=== PATIENT | male | born 1945 | race Caucasian/White ===

== ENCOUNTER 2018-05-30 10:25 | Emergency (ER) | payer MEDICARE, BC ==
--- NOTE | 2018-05-30 12:23 | UC ---
Syncope/New Syncope HPI - HPI Summary HPI Summary: 72 year old male with history of advanced Parkinson's presents with reporting episodes which the describes as the patient "going blank", becoming weak, and needing to be physically assisted into a chair. She states he has had similar episodes in the past but have occurred more frequently this week with patient having 1 episode on 05/27/2018 and 2 episodes on 05/28/2018. reports past episodes were associated with changes in position however at least one of his episodes this week occurred while he was ambulating across a parking lot. She states these episodes typically last around 5-10 minutes. Patient is nonverbal during the episodes. He states he is aware of the episodes when they occur. states that patient is presently acting at baseline. Denies fever, chills, headache, visual disturbances, speech difficulties, numbness or tingling of the extremities, chest pain, palpitations, shortness of breath, diaphoresis, or generalized seizure-like activity. He has a deep brain stimulator. Battery was changed 03/2018. He is followed by Dr. Marley, neurology, at [facility]. - History Of Current Complaint Chief Complaint: UCGeneralIllness Stated Complaint: BP PROBLEMS Time Seen by Provider: 05/30/18 10:58 Hx Obtained From: Patient, Family/House Painter Helper Hx From Patient Unobtainable Due To: Other - Mild-moderate cognitive impairment Onset/Duration: Sudden Onset Timing: Frequency Of Episodes - Intermittent episodes lasting 5-10 mintues. See HPI. Frequency: Episodes x___ - 3 this week Context: Witnessed Associated Head Trauma: No Pain Intensity: 0 Aggravating Factor(s): Position Change, Exertion Alleviating Factor(s): Rest Associated Signs And Symptoms: Positive: Decreased Oral Intake, Weakness. Negative: Chest Pain, Diarrhea, Diaphoresis, Dizzy, Headache, Numbness, Palpitations, Shortness Of Breath - Allergies/Home Medications Allergies/Adverse Reactions: Allergies Allergy/AdvReac Type Severity Reaction Status Date / Time No Known Allergies Allergy Verified 05/30/18 10:44 Home Medications: Home Medications Cholecalciferol TAB* [Vitamin D TAB*] 1,000 unit PO DAILY 05/30/18 [History Confirmed 05/30/18] DOXYcycline CAP(*) [DOXYcycline 100MG CAP(*)] 50 mg PO BID 05/30/18 [History Confirmed 05/30/18] PARoxetine HCL TAB* [Paxil TAB*] 10 mg PO DAILY 05/30/18 [History Confirmed 09/15] QUEtiapine TAB* [Seroquel 25 MG TAB*] 25 mg PO BEDTIME 05/30/18 [History Confirmed 05/30/18] PMH/Surg Hx/FS Hx/Imm Hx Other Neurological History: Parkinson's Psychological History: Depression - Surgical History Surgical History: Yes Surgery Procedure, Year, and Place: DBS- electrodes in brain, batteries in chest - Social History Occupation: Retired Lives: With Family Alcohol Use: Weekly Substance Use Type: None Smoking Status (MU): Never Smoked Tobacco Review of Systems Constitutional: Negative Skin: Negative Eyes: Negative Respiratory: Negative Cardiovascular: Negative Gastrointestinal: Negative Neurological: Other - See HPI Is Patient Immunocompromised?: No All Other Systems Reviewed And Are Negative: Yes Physical Exam Triage Information Reviewed: Yes Appearance: No Pain Distress, Well-Nourished, Ill-Appearing - Chronically Vital Signs: Initial Vital Signs Temp 98.1 F 05/30/18 10:35 Pulse 62 05/30/18 10:35 Resp 16 05/30/18 10:35 BP 100/67 05/30/18 10:35 Pulse Ox 99 05/30/18 10:35 Respiratory: Positive: Lungs clear, Normal breath sounds, No respiratory distress Cardiovascular: Positive: RRR, No Murmur, Pulses Normal, Brisk Capillary Refill Abdomen Description: Positive: Nontender, No Organomegaly, Soft. Negative: Distended, Guarding Bowel Sounds: Positive: Present Neurological: Positive: Other: - Awake, alert, and oriented x 4. Speech soft but appropriate. Shuffling gait. GOLDSMITH well but with slow, deliberate intent. Sensation intact. Balance and coordination deferred. Psychological: Positive: Normal Response To Family Skin Exam: Normal Syncope Course/Dx - Course Course Of Treatment: 72 year old male with advanced Parkinson's presents with reporting frequent near syncopal episodes. She was directed to come to by his neurologist's RN to have orthostatic VS performed. Exam is unremarkable at this time and patient appears to be at his baseline. Orthostatic VS were performed and there was a significant drop in his blood pressure without corresponding increase in pulse however patient was assymptomatic. It was recommended at that time that the patient be evaluated futher in the ED as I cannot correlate this finding with his reported symptoms. Spoke with MIGUELITO Payne in the ED who requested that case be discussed with his neurologist, Dr. Marley. Call was placed to Dr. Marley. Spoke with his RN, Charlotte, at 13:33 and again at 13:[address] Marley concurs with recommendation to have patient evaluated in the ED. Patient and elect to transfer via private vehicle. - Differential Dx/Diagnosis Differential Diagnosis/HQI/PQRI: Dysrhythmia, Seizure, Transient Ischemic Attack , Other - orthostatic hypotension Provider Diagnoses: Near syncope Discharge - Sign-Out/Discharge Documenting (check all that apply): Patient Departure All imaging exams completed and their final reports reviewed: No Studies - Discharge Plan Condition: Stable Disposition: HOME-RECOMMEND TO ED Patient Education Materials: Near Syncope (ED) Referrals: No Primary Care Phys,NOPCP [Primary Care Provider] - Additional Instructions: You did have a drop in your blood pressure with changes in position but you did not have any symptoms with these changes therefore I cannot definitively say that this is the cause of your symptoms. I spoke with Dr. Marley's nurse regarding the findings and they agree with my recommending that you be evaluated further in the emergency room at this time. Go directly to the emergency room for evaluation. - Billing Disposition and Condition Condition: STABLE Disposition: Home-Recommend to ED
[2018-05-30 12:53] VITALS: BP 121/75
== END 2018-05-30 14:16 | disposition home health service (06) ==
LOC: UCEAST 10:25
DX: R55 Syncope and collapse (principal); G20 Parkinson's disease; F32.9 Major depressive disorder, single episode, unspecified; Z96.9 Presence of functional implant, unspecified
CPT/HCPCS: 99212; G0463

== ENCOUNTER → 2018-05-30 14:35 | Emergency (ER) | payer MEDICARE, BC ==
[~2018-05-30 14:35] MED LIST: NS 0.9% 1000 ML* 1,000 ML IV ONE
--- NOTE | 2018-05-30 16:31 | ED ---
HPI Cardiac - HPI Summary HPI Summary: Patient is a 72 y/o M presenting to ED from for positive orthostatics. He was seen at for increased weakness, "going blank" and three syncopal episodes , one 05/27 and two 05/28, this week. At , BP standing at 1155 was 160/80, sitting was 117/71 at 1157, at 1200 BP was 93/62. Patient's reports that patient has had Parkinson's for twenty years. Patient takes paroxetine, doxycycline, and nuplazid. Patient has a deep brain stimulator, battery changed 03/2018. On triage, pain is denied, nothing is noted to aggravate/alleviate Sx. Home medications and allergies are reviewed. - History of Current Complaint Chief Complaint: EDHypertension Stated Complaint: BLOOD PRESSURE Time Seen by Provider: 05/30/18 16:22 Hx Obtained From: Patient Onset/Duration: Started Days Ago - syncopal episodes, Started Weeks Ago - weakness, "going blank" Timing: Constant Current Severity: None - pain denied Pain Intensity: 0 Pain Scale Used: 0-10 Numeric - 0/10 Aggravating Factor(s): Nothing Alleviating Factor(s): Nothing Associated Signs and Symptoms: Positive: Syncope, Other: - positive orthostatics , fatigue, "going blank" - Allergy/Home Medications Allergies/Adverse Reactions: Allergies Allergy/AdvReac Type Severity Reaction Status Date / Time No Known Allergies Allergy Verified 05/30/18 10:44 Home Medications: Home Medications Carbidopa/Levodop 25/100 MG(*) [Sinemet 25/100 TAB(*)] 0.5 tab PO TID 05/30/18 [ History Confirmed 05/30/18] Carbidopa/Levodop CR 50/200(*) [Sinemet CR 50/200(*)] 2 tab.cr PO BEDTIME [History Confirmed 05/30/18] Doxycycline (NF) 20 mg PO BID 05/30/18 [History Confirmed 05/30/18] PARoxetine HCL TAB* [Paxil TAB*] 30 mg PO DAILY 05/30/18 [History Confirmed 09/15] Pimavanserin Tartrate [Nuplazid] 34 mg PO DAILY 05/30/18 [History Confirmed 09/15] Rivastigmine [Exelon] 13.3 mg TOPICAL DAILY 05/30/18 [History Confirmed 05/30/18 ] PMH/Surg Hx/FS Hx/Imm Hx Sensory History: Denies: Hx Legally Blind, Hx Deafness Opthamlomology History: Denies: Hx Legally Blind EENT History: Denies: Hx Deafness - Surgical History Surgery Procedure, Year, and Place: DBS- electrodes in brain, batteries in chest Infectious Disease History: No Infectious Disease History: Denies: Hx Clostridium Difficile, Hx Hepatitis, Hx Human Immunodeficiency Virus (HIV), Hx of Known/Suspected MRSA, Hx Shingles, Hx Tuberculosis, Traveled Outside the [place] in Last 30 Days - Family History Known Family History: Negative: Blood Disorder - Social History Alcohol Use: Weekly Substance Use Type: Reports: None Smoking Status (MU): Never Smoked Tobacco Review of Systems Positive: Fatigue Positive: Other - positive orthostatics Neurological: Other - "going blank" Positive: Syncope All Other Systems Reviewed And Are Negative: Yes Physical Exam - Summary Physical Exam Summary: Appearance: Well appearing, no pain distress Skin: warm, dry, reflects adequate perfusion Head/face: normal Eyes: EOMI, NKECHI ENT: mucous membranes moist Neck: supple, non-tender Respiratory: CTA, breath sounds present Cardiovascular: RRR, pulses symmetrical Abdomen: non-tender, soft Bowel Sounds: present Musculoskeletal: normal, strength/ROM intact, no edema bilaterally at LE, no tremors Neuro: normal, sensory motor intact, A&Ox3 Psych: flat affect Triage Information Reviewed: Yes Vital Signs On Initial Exam: Initial Vitals Temp Pulse Resp BP Pulse Ox 97.3 F 63 16 107/70 99 05/30/18 14:38 05/30/18 14:38 05/30/18 14:38 05/30/18 14:38 05/30/18 14:38 Vital Signs Reviewed: Yes Diagnostics - Vital Signs Vital Signs Temp Pulse Resp BP Pulse Ox 05/30/18 16:16 56 176/90 98 05/30/18 16:05 55 99 05/30/18 16:04 57 180/92 99 05/30/18 14:38 97.3 F 63 16 107/70 99 - Laboratory Result Diagrams: 05/30/18 16:54 05/30/18 16:54 Lab Statement: Any lab studies that have been ordered have been reviewed, and results considered in the medical decision making process. - EKG 1645 Cardiac Rate: NL - rate of 66 BPM EKG Rhythm: Sinus Rhythm ST Segment: Normal Summary of EKG Findings: normal axis, baseline artifact Re-Evaluation - Re-Evaluation First Eval Re-Evaluation Time: 18:30 Comment: Discussed results of labs and tests with patient, he will be discharged to home and is advised to follow up with PCP. Patient is agreeable with this. Disposition - Course Course Of Treatment: Patient presents for orthostasis and hypertension patient with significant parkinsonism. 2 L of IV fluid here resolved the orthostasis. He will need rate blood pressure recheck by primary care physician. He was up and walking and stable without lightheadedness. - Differential Dx - Cardiopulmonary Differential Diagnoses - Cardiopulmonary: Other - Parkinsonism, dehydration, acute renal failure, gastroenteritis, autonomic instability - Diagnoses Provider Diagnoses: Orthostasis, Parkinson disease Discharge - Sign-Out/Discharge Documenting (check all that apply): Patient Departure - discharge - Discharge Plan Condition: Improved Disposition: HOME Patient Education Materials: Dehydration (ED) Referrals: No Primary Care Phys,NOPCP [Primary Care Provider] - Additional Instructions: Drink plenty of fluids. Call your doctor (Dr. Fritz Marley) first thing Saturday morning to schedule prompt follow-up. Return to the ER if you are feeling lightheaded, weak or dizzy or have other concerns. - Billing Disposition and Condition Condition: IMPROVED Disposition: Home - Attestation Statements Document Initiated by Claude: Yes Documenting Scribe: Sagar Mcdonald Provider For Whom Claude is Documenting (Include Credential): Francisco Lomeli MD Scribe Attestation: I, Sagar Mcdonald , scribed for Francisco Lomeli MD on 05/31/18 at 0740. Scribe Documentation Reviewed: Yes Provider Attestation: The documentation as recorded by the Sagar rios accurately reflects the service I personally performed and the decisions made by me, Francisco Lomeli MD
[2018-05-30 17:01] LABS: ABS Basophils 0 10^3/ul (0-0.2); ABS Eosinophils 0 10^3/ul (0-0.6); ABS Lymphocytes 1.5 10^3/ul (1.0-4.8); ABS Monocytes 0.5 10^3/ul (0-0.8); ABS Neutrophils 4.6 10^3/ul (1.5-7.7); ABS Nucleated RBC 0 10^3/ul; Eosinophil % 0.6 % (0-6); Hematocrit 42 % (42-52); Hemoglobin 14.2 g/dl (14.0-18.0); Lymphocyte % 22.4 % (25-47); Mean Corpuscular HGB Conc 34 g/dl (31-36); Mean Corpuscular Hemoglobin 30 pg (27-31); Mean Corpuscular Volume 88 fL (80-94); Mean Platelet Volume 9.2 fL (7.4-10.4); Nucleated Red Blood Cells % 0.2; Platelet Count 113 10^3/ul (150-450); Red Blood Count 4.76 10^6/ul (4.00-5.40); Red Cell Distribution Width 14 % (10.5-15); White Blood Count 6.6 10^3/ul (3.5-10.8)
[2018-05-30 17:22] LABS: EGFR Non-African American 85.1 (>60)
[2018-05-30 19:00] VITALS: BP 117/70
== END | disposition home or self-care (01) ==
LOC: ED 14:35
DX: I95.1 Orthostatic hypotension (principal); I10 Essential (primary) hypertension; G20 Parkinson's disease; R55 Syncope and collapse; F32.9 Major depressive disorder, single episode, unspecified; Z96.9 Presence of functional implant, unspecified
CPT/HCPCS: 36415; 80048; 85025; 93005; 96365; 96367; 99212; 99283; 99284; G0463

== ENCOUNTER 2019-02-15 11:16 | Emergency (ER) | payer MEDICARE, BC ==
[2019-02-15] MEDS ORDERED: NS 0.9% 1000 ML** 1,000 ML IV ONE ×2 (11:41→13:30)
--- NOTE | 2019-02-15 11:42 | ED ---
Syncope/Near Syncope - HPI Summary HPI Summary: Pt. is a 73 y.o male who presents to the ER for evaluation of low blood pressure. Pt. has a hx of Parkinson's, HTN, orthostatic hypotension. Pt. resides at home with a caregiver. Caregiver present in ER. Caregiver states just prior to arrival pt. went from a seated position to standing and his BP dropped and had seizure activity that lasted about 30 seconds. Caregiver states it is common for pt. to have a seizure when his BP drops. Caregiver lowered pt. to the ground and there was no head injury. Pt. is not on seizure prophylaxis. No recent illness, CP, SOB, cough, abd. pain, V/D, urinary sxs. Sxs are moderate in severity. No current modifying factors. - History Of Current Complaint Time Seen by Provider: 02/15/19 11:29 Hx Obtained From: Family/Transfer Coordinator - Allergies/Home Medications Allergies/Adverse Reactions: Allergies Allergy/AdvReac Type Severity Reaction Status Date / Time No Known Allergies Allergy Verified 05/30/18 10:44 PMH/Surg Hx/FS Hx/Imm Hx Previously Healthy: Yes Sensory History: Denies: Hx Legally Blind, Hx Deafness Opthamlomology History: Denies: Hx Legally Blind - Surgical History Surgery Procedure, Year, and Place: DBS- electrodes in brain, batteries in chest Infectious Disease History: Denies: Hx Clostridium Difficile, Hx Hepatitis, Hx Human Immunodeficiency Virus (HIV), Hx of Known/Suspected MRSA, Hx Shingles, Hx Tuberculosis, Traveled Outside the [place] in Last 30 Days - Family History Known Family History: Positive: Non-Contributory Negative: Blood Disorder - Social History Occupation: Retired Lives: With Family Alcohol Use: Weekly Substance Use Type: Reports: None Smoking Status (MU): Never Smoked Tobacco Review of Systems Constitutional: Negative Negative: Fever, Chills Eyes: Negative ENT: Negative Cardiovascular: Negative Negative: Chest Pain Respiratory: Negative Negative: Shortness Of Breath, Cough Gastrointestinal: Negative Negative: Abdominal Pain, Vomiting, Diarrhea Genitourinary: Negative Negative: dysuria Musculoskeletal: Negative Skin: Negative Positive: Syncope All Other Systems Reviewed And Are Negative: Yes Physical Exam Triage Information Reviewed: Yes Vital Signs Reviewed: Yes Appearance: Positive: Well-Appearing - Pt. sitting up in bed with eyes closed. Will answer questions very softly. Skin: Positive: Warm, Dry Head/Face: Positive: Normal Head/Face Inspection Eyes: Positive: Normal, EOMI Neck: Positive: Supple Respiratory/Lung Sounds: Positive: Clear to Auscultation, Breath Sounds Present Cardiovascular: Positive: Normal, RRR Abdomen Description: Positive: Nontender, Soft Musculoskeletal: Negative: Edema Left, Edema Right Neurological: Positive: Normal, CN Intact II-III Psychiatric: Positive: Affect/Mood Appropriate Diagnostics - Laboratory Result Diagrams: 02/15/19 12:14 02/15/19 12:14 Lab Statement: Any lab studies that have been ordered have been reviewed, and results considered in the medical decision making process. Course/Dx Course Of Treatment: Pt. presenting after what sounds to be a syncopal episode from hypotension. Pt. is afebrile. He appears tired but nontoxic. ECG done at 1214 shows a sinus rhythm of 54bpm, normal axis, no st elevation. Labs are unremarkable other than low TSH. Free T4 and T3 ordered and are normal. After 2 L of NSS pt. is sitting up in bed talking and interactive. 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 Advised close fu with PCP. Change positions slowly. Will return to ER if sxs change or worsen. - Diagnoses Differential Diagnosis/HQI/PQRI: Positive: Dysrhythmia, Hypoglycemia, Hypovolemia, Seizure, Vasovagal Episode Provider Diagnoses: Hypotension Discharge - Sign-Out/Discharge Documenting (check all that apply): Patient Departure Patient Received Moderate/Deep Sedation with Procedure: No - Discharge Plan Condition: Improved Disposition: HOME Patient Education Materials: Hypotension (ED) Referrals: [facility] [Outside] Additional Instructions: Schedule a follow up appointment with PCP in 2-3 days for recheck Increase fluids Change positions slowly Return to ER if symptoms change or worsen - Billing Disposition and Condition Condition: IMPROVED Disposition: Home
[2019-02-15 12:21] LABS: ABS Lymphocytes 1.4 10^3/ul (1.0-4.8); ABS Monocytes 0.5 10^3/ul (0-0.8); ABS Neutrophils 8.3 10^3/ul (1.5-7.7); Eosinophil % 0.4 %; Hematocrit 45 % (42-52); Hemoglobin 15.5 g/dL (14.0-18.0); Lymphocyte % 13.5 %; Mean Corpuscular HGB Conc 34 g/dL (31-36); Mean Corpuscular Hemoglobin 30 pg (27-31); Mean Corpuscular Volume 88 fL (80-94); Mean Platelet Volume 9.1 fL (7.4-10.4); Platelet Count 148 10^3/uL (150-450); Red Blood Count 5.12 10^6 /uL (4.18-5.48); Red Cell Distribution Width 14 % (10-15); White Blood Count 10.2 10^3/uL (3.5-10.8)
[2019-02-15 12:37] LABS: ALT < 3 U/L (7-52); AST 11 U/L (13-39); Albumin/Globulin Ratio 1.5 (1-3); Alkaline Phosphatase 91 U/L (34-104); Anion Gap 5 mmol/L (2-11); BUN/Creatinine Ratio 15.2 (8-20); Blood Urea Nitrogen 14 mg/dL (6-24); CO2 Carbon Dioxide 29 mmol/L (22-32); Calcium 8.9 mg/dL (8.6-10.3); Chloride 105 mmol/L (101-111); EGFR African American 97.6 (>60); EGFR Non-African American 80.6 (>60); Globulin 2.7 g/dL (2-4); Glucose 107 mg/dL (70-100); Magnesium 2.3 mg/dL (1.9-2.7); Potassium 4.4 mmol/L (3.5-5.0); Sodium 139 mmol/L (135-145); Total Protein 6.7 g/dL (6.4-8.9)
[2019-02-15 13:36] LABS: TSH (Thyroid Stimulating Horm) 0.01 mcIU/mL (0.34-5.60)
[2019-02-15 14:36] LABS: Free T4 0.84 ng/dL (0.61-1.12)
[2019-02-15 15:11] VITALS: BP 96/73
== END 2019-02-15 15:08 | disposition home or self-care (01) ==
LOC: ED 11:16
DX: I95.9 Hypotension, unspecified (principal); G20 Parkinson's disease; I10 Essential (primary) hypertension; I95.1 Orthostatic hypotension
CPT/HCPCS: 36415; 71045; 80053; 83605; 83735; 84439; 84443; 84479; 84481; 84484; 85025; 93005; 96360; 96361; 99283

== ENCOUNTER 2019-02-16 09:21 | Inpatient (IN) | payer MEDICARE, BC ==
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
[2019-02-16 09:54] LABS: ABS Eosinophils 0.1 10^3/ul (0-0.6); ABS Lymphocytes 1.4 10^3/ul (1.0-4.8); ABS Monocytes 0.5 10^3/ul (0-0.8); Eosinophil % 1.1 %; Hematocrit 42 % (42-52); Hemoglobin 14.7 g/dL (14.0-18.0); Lymphocyte % 20.5 %; Mean Corpuscular HGB Conc 35 g/dL (31-36); Mean Corpuscular Hemoglobin 31 pg (27-31); Mean Corpuscular Volume 88 fL (80-94); Mean Platelet Volume 8.9 fL (7.4-10.4); Nucleated Red Blood Cells % 0.2; Platelet Count 130 10^3/uL (150-450); Red Blood Count 4.79 10^6 /uL (4.18-5.48); Red Cell Distribution Width 14 % (10-15)
[2019-02-16 10:12] LABS: Albumin 3.9 g/dL (3.2-5.2); Albumin/Globulin Ratio 1.6 (1-3); BUN/Creatinine Ratio 15.1 (8-20); Calcium 8.7 mg/dL (8.6-10.3); EGFR African American 105.5 (>60); EGFR Non-African American 87.2 (>60); Globulin 2.5 g/dL (2-4); Magnesium 2.2 mg/dL (1.9-2.7); Potassium 4.2 mmol/L (3.5-5.0); Total Bilirubin 0.8 mg/dL (0.2-1.0); Total Protein 6.4 g/dL (6.4-8.9)
[2019-02-16 10:22] LABS: Urine Appearance Clear; Urine Bilirubin Negative (Negative); Urine Blood Negative (Negative); Urine Color Straw; Urine Glucose Negative (Negative); Urine Ketones Negative (Negative); Urine Nitrite Negative (Negative); Urine Protein Negative (Negative); Urine Specific Gravity 1.008 (1.010-1.030); Urine Urobilinogen Negative (Negative)
[2019-02-16] MEDS ORDERED: Carbidopa/Levodop 25/100 MG TAB(*) PO ONE ×2 (10:49→15:45)
[2019-02-16] MEDS ORDERED: QUEtiapine TAB* 25 MG PO PRN (17:08)
[2019-02-16] MEDS: Carbidopa/Levodop 25/100 MG TAB(*) PO SCH (19:53)
[2019-02-16] MEDS ORDERED: RIVASTIGMINE 13.3 MG TOPICAL SCH (21:00)
[2019-02-16] MEDS: QUEtiapine TAB* 25 MG PO SCH (21:01)
[2019-02-16] MEDS: Carbidopa/Levodop CR 50/200(*) TAB.CR PO SCH (21:01)
[2019-02-16] MEDS: Heparin VIAL(*) 5000 UNITS/ML VIAL (FIVE THOUSAND) SUBCUT SCH (21:07)
--- NOTE | 2019-02-16 21:27 | HP ---
CC: Dr. Will Dow; Dr. Fritz Marley * HISTORY AND PHYSICAL: DATE OF ADMISSION: 02/16/19 TIME OF EVALUATION: 4:20 p.m. PRIMARY CARE PROVIDER: Dr. Will Dow in [place], [place]. Phone number [phone]. NEUROLOGIST: Dr. Fritz Marley at [facility]. Phone number [phone]. CHIEF COMPLAINT: "He is more confused" as per . HISTORY OF PRESENT ILLNESS: Mr. Leal is a 73-year-old male with a past medical history of Parkinson disease, status post deep brain stimulator, who was brought into the emergency room by his once again today due to agitation and weakness. The patient has had Parkinson disease for more than 25 years. The patient's states that he has followed with Dr. Marley since his diagnosis, and in early 1999, he went to [facility] where he had a deep brain stimulator placed. She said that after the procedure, he had some period of improvement, but he has been in path of decline for a while. He used to reside at home with her and she had an aide that would help with his care, but he got to the point that she was not able to do it anymore, so she placed the patient at [facility] in early December. The patient became more agitated and despite addition of Seroquel, [facility] was not able to manage his symptoms, and he was discharged from there 4 days ago. She continues to take care of him at home with the help of an aide and she brought him to the emergency room on 02/15 as he had a syncopal episode. She states that he has orthostatic hypotension and is on midodrine for it, and she states it is not uncommon for him to pass out like that. His workup at that time was unremarkable and he was discharged home. She brings him back to the emergency room today that she can no longer care for him at home, as he is more confused and agitated. She did not notice any other changes. He is being compliant with his medications, and after being seen by the emergency room provider and health social work professor, a decision was made to have the patient admitted to jail care while we continue to pursue placement in a custodial facility. PAST MEDICAL HISTORY: Longstanding Parkinson disease diagnosed more than 25 days ago, status post deep brain stimulator in the early 1999. MEDICATIONS LIST: 1. Sinemet 25/100 mg half a tablet p.o. 11 in the morning and 5 p.m. 2. Carbidopa and levodopa 25/250 mg half a tablet p.o. 8 am and 2 p.m. 3. Carbidopa and levodopa CR 50/200 two tablets p.o. at 2000. 4. Cholecalciferol 2000 units p.o. at 1400. 5. Doxycycline 20 mg p.o. at 8 a.m. and 5 p.m. 6. Lorazepam 0.5 mg p.o. q.4 hours p.r.n. agitation. 7. Midodrine 5 mg p.o. 8 a.m. 8. Paroxetine 30 mg p.o. 8 a.m. 9. Seroquel 50 mg p.o. at bedtime. 10. Rivastigmine 13.3 mg patch topical at bedtime. ALLERGIES: No known drug allergies. FAMILY HISTORY: Reviewed with the patient's and there is a family history of CAD, but as far as she knows, no other medical problems, no other family members with parkinsonism. SOCIAL HISTORY: No history of tobacco, alcohol, or drug use. Surrogate decision maker is his , Krissy Cortez, phone number is [phone]. The patient has a MOLST form documented that he wants to be a do not resuscitate. REVIEW OF SYSTEMS: I am unable to obtain from the patient at this point due to his confusion. PHYSICAL EXAMINATION GENERAL: The patient is a pleasantly confused elderly gentleman, lying in the stretcher, in no acute distress. VITAL SIGNS: Temperature 98.0, heart rate is 63, respiratory rate is 15, oxygen saturation is 99% on room air, blood pressure is 165/90. HEENT: Pupils are equal. Moist mucous membranes. CHEST: Breath sounds bilaterally with no added sounds. CVS: Normal S1, S2. Regular rate and rhythm. ABDOMEN: Soft, nontender. Bowel sounds are present. NEURO: The patient is alert and oriented x1 to self only. He is able to move all 4 extremities though slowly. DIAGNOSTIC STUDIES/LAB DATA: The patient had a CBC that showed WBC of 7.0, hemoglobin of 14.7, hematocrit of 42, platelets of 530 with 70% neutrophils. Chemistry showed sodium of 140, potassium of 4.2, chloride of 106, bicarb of 28 , BUN of 13, creatinine of 0.86, glucose of 97, lactic acid is 1. Calcium is 8.7, magnesium is 2.2. LFTs are normal with an AST of 12, ALT of 5 (on the lower side). Urinalysis is negative. CT of the brain without contrast showed a deep brain stimulator generator streak artifact, but there is no acute intracranial abnormality, moderate right maxillary sinus mucosal disease, status post left canal wall-up mastoidectomy. ASSESSMENT AND PLAN: Mr. Leal is a 73-year-old male with a past medical history of Parkinson disease, status post deep brain stimulator, who has had progressive decline in his condition, and at this point, his cannot care for him at home anymore, so he will be admitted to jail care with plans for placement in a custodial facility when a bed is available. 1. Parkinson disease. The patient appears to be at baseline, but has had progression of his dementia causing his worsening confusion. We will add Seroquel p.r.n. on top of his bedtime Seroquel, and depending on his response, we can continue to increase the Seroquel dose. Other options would be adding Nuplazid or even Depakote, but this would probably worsen his movement. We will obtain records from his neurologist to see what medications have already been tried in the past. For now, he will be continuing his usual Sinemet regimen. 2. DVT prophylaxis: The patient has a score of 2 on the DVT Prophylaxis Risk Assessment Guide. He will be started on subcutaneous heparin. 3. Physical deconditioning. The patient will be seen by Physical Therapy and Occupational Therapy. 4. Code status: The patient is a do not resuscitate. His MOLST form was reviewed with his . TIME SPENT: Approximately 45 minutes was spent to complete the discharge. [id number]/[facility] #: [id number] JUSTA
[2019-02-16] MEDS: DOXYCYCLINE 20 MG PO SCH (23:11)
[2019-02-16] MEDS: RIVASTIGMINE TRANSDERM SCH (23:12)
[2019-02-17] MEDS: LORazepam TAB(*) 0.5 MG PO PRN ×2 (02:01→06:23)
[2019-02-17] MEDS: Heparin VIAL(*) 5000 UNITS/ML VIAL (FIVE THOUSAND) SUBCUT SCH ×3 (06:05→22:00)
[2019-02-17] MEDS: Carbidopa/Levodop 25/250MG TAB(*) PO SCH ×2 (09:20→15:00)
[2019-02-17] MEDS: DOXYCYCLINE 20 MG PO SCH ×2 (09:20→18:14)
[2019-02-17] MEDS: PARoxetine HCL TAB* 10 MG PO SCH (09:21)
[2019-02-17] MEDS: Carbidopa/Levodop 25/100 MG TAB(*) PO SCH ×2 (11:56→18:14)
[2019-02-17] MEDS: Cholecalciferol TAB* 1000 UNITS PO SCH (15:00)
[2019-02-17] MEDS: QUEtiapine TAB* 25 MG PO SCH (20:27)
[2019-02-17] MEDS: Carbidopa/Levodop CR 50/200(*) TAB.CR PO SCH (22:01)
[2019-02-17] MEDS: RIVASTIGMINE TRANSDERM SCH (22:01)
--- NOTE | 2019-02-18 01:12 | PN ---
Hospitalist Progress Note Date of Service: 02/18/19 Patient was seen at the bedside as patient was requesting to see provider. Patient's wanted to have neurostimulator check for battery life. Stimulator were check with patients device and shown to have full battery life and be turned on. Patient also was requesting neurology consultation. Spoke to Dr. Silva who see the patient tomorrow . Patient's reports that the patient symptoms became worse after he was placed ativan. reports that pain became more fatigued and weak and more agitated. patient is currently resting calmly in bed with no complaints.
[2019-02-18] MEDS: Heparin VIAL(*) 5000 UNITS/ML VIAL (FIVE THOUSAND) SUBCUT SCH ×3 (07:19→20:01)
[2019-02-18] MEDS: DOXYCYCLINE 20 MG PO SCH ×2 (07:59→17:16)
[2019-02-18] MEDS: PARoxetine HCL TAB* 10 MG PO SCH (08:00)
[2019-02-18] MEDS: Carbidopa/Levodop 25/250MG TAB(*) PO SCH ×2 (08:01→14:44)
[2019-02-18] MEDS: Carbidopa/Levodop 25/100 MG TAB(*) PO SCH ×2 (11:11→17:16)
[2019-02-18] MEDS ORDERED: QUEtiapine TAB* 25 MG PO ONE (11:57)
[2019-02-18] MEDS: Cholecalciferol TAB* 1000 UNITS PO SCH (14:43)
[2019-02-18 19:22] LABS: TSH (Thyroid Stimulating Horm) 2.54 mcIU/mL (0.34-5.60)
[2019-02-18 19:24] LABS: Free T4 0.97 ng/dL (0.61-1.12)
[2019-02-18 19:29] LABS: Thyroid Peroxidase Antibodies 0.66 IU/mL (<9)
[2019-02-18] MEDS: NS 0.9% 1000 ML** 1,000 ML IV SCH (19:30)
[2019-02-18] MEDS: RIVASTIGMINE TRANSDERM SCH (19:54)
[2019-02-18] MEDS: QUEtiapine TAB* 25 MG PO SCH ×4 (19:56→23:13)
[2019-02-18] MEDS: Carbidopa/Levodop CR 50/200(*) TAB.CR PO SCH (19:56)
--- NOTE | 2019-02-18 20:13 | CONS ---
NEUROLOGY CONSULTATION NOTE: DATE OF CONSULT: 02/18/19 CONSULTING PROVIDER: Dr. Yaneli Boucher and Kathy Schultz NP REASON FOR CONSULT: History of Parkinson disease with dementia and psychosis. CHIEF COMPLAINT: Increasing confusion as per . HISTORY OF PRESENT ILLNESS: Mr. 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 The patient has had Parkinson Disease for 25 years. He has bilateral DBS implanted in 2005. He follows up with Dr. Marley. He is currently on Sinemet 25/100 half a tablet by mouth 3 times a day, carbidopa/ levodopa 25/250 half a tablet twice a day and carbidopa/levodopa continuous release 50/200 two tablets p.o. at night. The history was mostly obtained from the patient's . According to Adolfo, the patient's , the patient has exhibited increase in agitation and aggressive behavior for the past 5-6 months. She was initially taking care of him at home with multiple aide assist. However, on 12/30/17, the patient moved to [facility]. The patient was not happy with this decision. She stated that the patient was ing well before when he was at the assisted facility. His delirious behavior started approximately 1-1/2 years ago. This behavior consists of hallucinations and delusions. He sees beavers in the backyard, snowmobiles in the winter time, and someone cutting down trees during the day. Over the past 5-6 months, the patient's behavior has worsened to a point where she was unable to care for him anymore. However, last , the patient was reported to have some issues with one of the aides. It may have been one of the aides triggering his irritability and agitation. He was fighting staff members. He was not cooperating. He was prescribed Ativan and was given the first dose on Saturday and a few doses on Saturday. He became nearly obtunded. With lucid intervals, he was not the same person he was before Ativan. [facility] was unable to keep him there anymore due to his increase in agitation. His spouse took him home, but was unable to care for him. Therefore, she brought him to the ER for further evaluation. The patient was able to go hiking last Saturday with his aide. night is when his aggressive behavior and agitation started, and he was throwing food during dinner time at the assisted facility. He usually listens to his and cooperates, but he raised his voice for the first time over and Saturday morning. On Saturday, the patient was peeing all over the room, and he has taken his shoelaces and wrapping them around his ankles. Of note, the patient was on Nuplazid which he started taking 34 mg a day in September 2017. Nuplazid had switched its formulary to 1 capsule in April 2018. The patient was unable to tolerate the capsule as he developed some babbling sounds and increase in confusion. He only took 2 capsules and then the spouse decided to discontinue the medication. Since then he has been on Seroquel 50 mg at nighttime. However, while he was on Nuplazid 17 mg 2 tablets a day, he was less irritable and not agitated. It seems like his hallucination and aggressive behavior worsened after he discontinued the medication. The patient came to the ED on Saturday evening. Laboratory findings as well as urinalysis was obtained to rule out urinary tract infection. The patient was sent home after everything was negative. He came back on Saturday as the patient' s spouse was unable to take the patient downstairs. He has been here since then as a long-term patient. I personally spoke with Dr. Marley and obtained some further history. Dr. Marley was concerned about the sudden change in his mentation. Of note, the patient has had increasing weight loss, worsening orthostatic hypotension, difficulty chewing, swallowing, intermittent coughing spells with liquids. His diet has been modified during this hospitalization. The patient enjoys activities like swimming and hiking. He typically does 1 outdoor activity a week with his caregivers. Again, the patient was hiking last Saturday. PAST MEDICAL HISTORY: Longstanding Parkinson disease diagnosed 25 years ago, status post bilateral deep brain stimulation in 2005. MEDICATIONS: As per HPI, but also include: 1. Vitamin D. 2. Midodrine 5 mg. 3. Quetiapine 50 mg p.o. at bedtime. 4. Lorazepam which has been discontinued. 5. Exelon patch 13.3 mg at bedtime. 6. Doxycycline 20 mg p.o. Doxycycline he receives at 0800 and 1700. 7. Paroxetine 30 mg p.o. daily. ALLERGIES: No known drug allergies. FAMILY HISTORY: The patient has no family history of stroke or seizures. SOCIAL HISTORY: Denied history of tobacco or alcohol use. There is no history of drug use. The patient is DNR. PHYSICAL EXAMINATION: Vitals: Temperature of 97.4, pulse of 59, respiratory rate of 18, oxygen saturation 99%, blood pressure 143/79. General: Frail appearing elderly man, who has masked facies. Head: Atraumatic, normocephalic. Eyes: Conjunctivae/corneas are clear. Neck is supple and symmetrical without no carotid bruits. Chest: Clear to auscultation bilaterally with no rhonchi or wheezing. Cardiac: Regular rate and rhythm with normal S1, S2. Extremities: No hammertoes or high arches. Skin: No skin lacerations or lesions. Psych: Flat affect and depressed mood. Neurological: The patient is awake, alert, oriented to person, but not place or time. He has got [id number] psychomotor slowing. Bradykinesia. Hypophonia. He is able to make remarks like being in the room is not as entertaining as walking down the hallways. He also recognized his and Dr. Marley's name when mentioned. He smiled intermittently throughout the interview. Cranial Nerves: Pupils equal, round, reactive to light. Extraocular muscles are intact. There is no facial asymmetry. Tongue is symmetric and midline. Motor : Increase in cogwheel rigidity in the left upper extremity, but normal tone on the right. He has a foot drop in the left lower extremity due to a previous lumbar spine injury. This is chronic. He has normal strength against some resistance all throughout symmetrically other the dorsiflexion weakness in the left lower extremity. He also has mild left hip abduction weakness graded as 4/ 5. Reflexes: 1+ throughout the upper and lower extremities symmetrically and 1 + at the knees bilaterally, 0 at the ankles bilaterally. Sensations is intact to light touch throughout. Coordination: Normal [id number] on the right, slightly difficult to do on the left due to slight cogwheeling. Gait: Wide based, fast gait with severe retropulsion. The patient was able to ambulate with minimal 1 person assist. He was walking with slight sway to the left side , but after walking a few laps around the unit, he was able to actually walk in a straight line with no assistance. DIAGNOSTIC STUDIES/LAB DATA: Imaging, labs, and other diagnostic testing: WBC of 7.1, hemoglobin of 14, hematocrit of 42, platelet count of 130. Sodium of 140, potassium 4.2, chloride 106, anion gap is 6, glucose of 97, calcium of 8.7. Urinalysis, no evidence of pyuria. CT of the head showed no evidence of an intracranial abnormality. The DBS placement seems to be in globus pallidus region bilaterally. ASSESSMENT AND RECOMMENDATIONS: Mr. 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 He also has orthostatic hypotension and is status post DBS. He presented to [facility] due to increase in his psychiatric disturbances related to Parkinson disease. Overall, the differential diagnosis here is mostly exacerbation of the patient' s Parkinson psychosis, which could be related to the nature of the disease process as well as infectious or metabolic abnormality. We have ruled out urinary tract infection or major electrolyte imbalance. I have ordered magnesium level, vitamin B12 level, and TSH for a more thorough evaluation of secondary causes of delirium. Other differential diagnosis include: a. dehydration; or b. selectively having a functional problem given that the patient is frustrated that his had placed him in a assisted living. The patient would prefer to be home. I have discussed this with the patient and his spouse. I also discussed this with Dr. Marley, the patient's neurologist. The patient has tolerated the increase in Seroquel dose 25 mg in the morning and 50 mg at night. He does exhibit some drowsiness after the morning/ afternoon dose. Overall, his agitation improved with the increase in Seroquel. Adolfo is concerned that the patient is a bit more hypnotic and sleepy, but at least he is more cooperative. I agree with the current therapy, and we should continue the Seroquel dose as scheduled 25 mg in the afternoon and 50 mg around 1800 to 1900 rather than waiting till 2100. Please practice delirium measures which include: a keeping a sitter at bedside and making sure to orient the patient about the day, time, and explaining any tests or procedures that are going to be done throughout the hospitalization. Frequent orientation would also be helpful. I recommended restarting Nuplazid as an outpatient, but using the 10 mg formula, possibly three tablets a day instead of the new capsule of 34 mg a day. He seemed to have tolerated that medication and it seemed to control his agitation and psychiatric disturbance. If he continues to cooperate and tolerate the change in medication, Adolfo stated that she would be more than happy to take him home and assigning the caregivers to come and see him on a daily basis. In the meantime, looking for another assisted living would be a second option. I discussed the case with Dr. Stephenson who will be coming in to interrogate the patient's DBS, although I do not think this hospitalization is related to malfunctioning of his DBS given that his motor function is fairly intact. TIME SPENT: Total time spent 90 minutes, of which more than 50% was spent obtaining history, examining the patient, education, counseling, discussing the care with other providers including the patient's neurologist and reviewing the treatment plan with Adolfo and Mr. Hatfieldtomy. [id number]/[facility] #: [id number] MTDChris
[2019-02-19] MEDS: Heparin VIAL(*) 5000 UNITS/ML VIAL (FIVE THOUSAND) SUBCUT SCH ×3 (05:06→21:50)
[2019-02-19] MEDS: PARoxetine HCL TAB* 10 MG PO SCH (07:59)
[2019-02-19] MEDS: DOXYCYCLINE 20 MG PO SCH ×2 (08:00→17:42)
[2019-02-19] MEDS: Carbidopa/Levodop 25/250MG TAB(*) PO SCH ×2 (08:01→14:46)
[2019-02-19] MEDS: NS 0.9% 1000 ML** 1,000 ML IV SCH (09:50)
[2019-02-19] MEDS: QUEtiapine TAB* 25 MG PO SCH ×2 (11:37→19:18)
[2019-02-19] MEDS: Carbidopa/Levodop 25/100 MG TAB(*) PO SCH ×2 (11:38→17:42)
[2019-02-19] MEDS: Cholecalciferol TAB* 1000 UNITS PO SCH (14:46)
--- NOTE | 2019-02-19 16:36 | PN ---
Hospitalist Progress Note Date of Service: 02/19/19 Discussion with patient's regarding POC and discharge planning. Adolfo states she still needs care for Saturday and Saturday and she is "working on this". She seems upset about her 's fluid status and thinks he is dehydrated. Explained that he is hemodynamically stable as evidenced by normal VS, UOP and skin turgor. Oral intake is adequate. Reinforced that her remains on Assisted status and he is not active medical care. Oral medications have been titrated by neurology and he remains stable and should be discharged with outpatient neurology follow up. Further discussed case with Alma Aguirre regarding disposition and discharge planning.
[2019-02-19] MEDS ORDERED: Cyanocobalamin INJ * 1,000 MCG/ML VIAL 1 ML VIAL IM ONE (16:52)
--- NOTE | 2019-02-19 16:52 | PN ---
Subjective Length of Stay: 3 Days Neurology is following for agitation. Interval History: He reported feeling "much better" today. He is more verbal. He is smiling with the examiner. He is in no acute distress. He requested to ambulate around the hallway. He continues to have significant cognitive decline. He was not agitated yesterday or this morning. Review of Systems: Denied CP, SOB, or palpitations. Objective Active Medications: Carbidopa/Levodopa (Sinemet 25/100 Tab(*)) 0.5 tab PO 1100,1700 [facility] Last Admin: 02/19/19 11:38 Dose: 0.5 tab Carbidopa/Levodopa (Sinemet 25/250 Tab(*)) 0.5 tab PO 0800,1400 [facility] Last Admin: 02/19/19 14:46 Dose: 0.5 tab Carbidopa/Levodopa (Sinemet Cr 50/200(*)) 2 tab.cr PO 2000 [facility] Last Admin: 02/18/19 19:56 Dose: 2 tab.cr Cholecalciferol (Vitamin D Tab*) 2,000 units PO 1400 [facility] Last Admin: 02/19/19 14:46 Dose: 2,000 units Doxycycline Hyclate (Doxycycline (Nf)) 20 mg PO 0800,1700 [facility] Last Admin: 02/19/19 08:00 Dose: 20 mg Heparin Sodium (Porcine) (Heparin Vial(*)) 5,000 units SUBCUT Q8HR [facility] Last Admin: 02/19/19 14:47 Dose: 5,000 units Midodrine (Midodrine) 5 mg PO 0800 [facility]; Protocol Last Admin: 02/19/19 08:00 Dose: 5 mg Pto: Rivastigmine 13.3 Mg/ 24 Hour Patch 1 dose TRANSDERM BEDTIME [facility] Last Admin: 02/18/19 19:54 Dose: 1 dose Paroxetine HCl (Paxil Tab*) 30 mg PO 0800 [facility] Last Admin: 02/19/19 07:59 Dose: 30 mg Quetiapine Fumarate (Seroquel Tab*) 25 mg PO DAILY [facility] Last Admin: 02/19/19 11:37 Dose: 25 mg Quetiapine Fumarate (Seroquel Tab*) 50 mg PO BEDTIME [facility] Last Admin: 02/18/19 19:56 Dose: 50 mg Vital Signs 02/18/19 02/18/19 02/18/19 19:31 20:00 22:02 Temperature 97.6 F Pulse Rate 69 Respiratory 19 Rate Blood Pressure 110/64 (mmHg) O2 Sat by Pulse 99 Oximetry 02/18/19 02/19/19 02/19/19 23:14 03:23 07:43 Temperature 97.6 F 97.4 F 96.9 F Pulse Rate 48 49 56 Respiratory 20 18 16 Rate Blood Pressure 136/79 148/74 136/71 (mmHg) O2 Sat by Pulse 96 100 99 Oximetry Intake and Output Last 24 Hours 02/17/19 02/18/19 02/19/19 02/20/19 06:59 06:59 06:59 06:59 Intake Total 0 310 360 480 Balance 0 310 360 480 Weight 151 lb 11.2 oz Intake: Oral 0 310 360 480 Other: Estimated Void Large Large Large Small Date of Last Bowel [id number]/19/19 Movement # Bowel Movements 0 1 0 1 Estimated Stool Amount Medium # Voids 1 1 1 1 Oxygen Devices in Use Now: None Neurology Exam: General: Well nourished, well developed, and in no acute distress HEENT: Normocephelic/atraumatic, sclera anicteric, mucous membranes moist Neck: Supple Extremities: No clubbing, cyanosis, or edema Neurological Findings: Awake, alert, and oriented to person, but not place or time. Speech: hypophonia and bradykinetic. Cranial Nerve: PERRL, EOM intact, VFF, Motor: s/s throughout, proximal and distal extremities x4 tone/bulk normal. Increase in tone in the left upper extremity. Foot drop on the left with 3/5 strength to ankle dorsiflexion. Sensation: intact to LT/PP bilaterally upper and lower extremities Deep Tendon Reflex: 2+ symmetric in the upper/lower extremities, Babinski - down going normal finger to nose on the right, bradykinetic on the left. Gait: wide based gait, retropulsion, required one person assist. Steppage gait on the left. Result Diagrams: 02/16/19 09:44 02/16/19 09:44 Microbiology and Other Data: Microbiology 02/16/19 21:35 Nasal Screen MRSA (PCR) - Final Nasal Mrsa Not Detected Assessment/Plan 1. Mr. Keaton Leal is a 73-year-old man with history of Parkinson's disease dementia and psychosis. He presented to the hospital with increase in delirium, psychosis, and agitation. He has no evidence of infection or electrolyte imbalance. It was thought that his change in behavior was related to his underlying disease and paradoxical effect related to Ativan. He is tolerating the new regiment of Seroquel 25 mg in the afternoon and 50 mg at night. We discontinued Ativan. Please add Ativan to the patient's allergy list as he should not receive the treatment in the future. He will consider restarting Nuplazid as an outpatient. DBS was interrogated by Dr. Stephenson and it's functioning appropriately. 2. Vitamin B12 deficiency: this can also be exacerbating his psychosis. Recommend IM repletion with 1,000 mcg of cyanocobalamin. May repeat another IM dose if he is still here tomorrow. Continue cyanocobalamin 1,000 mcg PO daily. There is no further neurological work-up or recommendation at this time. There is some social issues regarding the patient's caregiver availability. Defer further recommendations to the caser shoe parts and primary team. Please contact me for any questions or concerns.
[2019-02-19] MEDS: Cyanocobalamin TAB* 500 MCG PO SCH (17:43)
[2019-02-19] MEDS: Carbidopa/Levodop CR 50/200(*) TAB.CR PO SCH (19:18)
[2019-02-19] MEDS: RIVASTIGMINE TRANSDERM SCH (19:38)
[2019-02-20] MEDS: Heparin VIAL(*) 5000 UNITS/ML VIAL (FIVE THOUSAND) SUBCUT SCH (05:46)
[2019-02-20 08:08] VITALS: BP 143/77
[2019-02-20] MEDS: Carbidopa/Levodop 25/250MG TAB(*) PO SCH ×2 (08:33→13:29)
[2019-02-20] MEDS: DOXYCYCLINE 20 MG PO SCH (08:35)
[2019-02-20] MEDS: Cyanocobalamin TAB* 500 MCG PO SCH (08:35)
[2019-02-20] MEDS: PARoxetine HCL TAB* 10 MG PO SCH (08:35)
[2019-02-20] MEDS: QUEtiapine TAB* 25 MG PO SCH (08:35)
[2019-02-20] MEDS: Carbidopa/Levodop 25/100 MG TAB(*) PO SCH (11:18)
[2019-02-20] MEDS: Cholecalciferol TAB* 1000 UNITS PO SCH (13:30)
--- NOTE | 2019-02-21 00:06 | DS ---
CC: Dr. Will Dow; Dr. Fritz Marley, Neurology; Dr. Deborah Silva * DISCHARGE SUMMARY: DATE OF ASSISTED ADMISSION: 02/16/19 DATE OF DISCHARGE: 02/20/19 PRIMARY CARE PROVIDER: Dr. Will Dow. MY ATTENDING FOR TODAY: Dr. aDna Matute.* (DICTATED BY ROSI LOBATO , DULCE) HOSPITAL COURSE: Please refer to admitting H and P on 02/16/19, but in short, Mr. Leal is a 73-year-old gentleman with Parkinson disease and Parkinson psychosis. The patient was brought to the emergency room by his stating he is more confused. The patient has had a longstanding history of Parkinson disease and has had a substantial decline. The patient has had issues with being in facilities and then having care at home. The patient's said she can no longer care for him at home and he was admitted to correction care. Social Work and Case Management tried to work with the patient's on a safe discharge plan because the had a conversation with the ER provider and the admitting provider regarding the use of Ativan, which she states made the patient more confused and more agitated and he was becoming very aggressive. The patient's Ativan was stopped and we requested Dr. Silva to see the patient in consultation because of his severe Parkinson psychosis. Dr. Silva recommended increasing the patient's Seroquel. He already takes Seroquel in the evening 50 mg, Dr. Silva recommended 25 in the afternoon, stopping Ativan completely as this could make his Parkinson psychosis worse. Benzodiazepines are contraindicated in this condition. Dr. Silva did recommend restarting Nuplazid as an outpatient as well. The patient was on this in the past. The patient's stated that at some point she thought he had a reaction to it and that is why she took him off that medication. It should also be noted that the patient does have a deep brain stimulator, which was interrogated by Dr. David Stephenson. The deep brain stimulator is functioning appropriately and no changes were made to the settings. Dr. Silva also recommended that the patient be started on B12 supplementation as B12 deficiency could be exacerbating some of his psychotic symptoms and recommended that he be taking B12 supplementation as a part of his medication regimen. The patient's did obtain some in-home assistance in terms of the patient's care in the home and decided against placing the patient in a rehab and/or nursing facility. The notes from Case Management and Social Work do state that the patient has been difficult to place because of his agitated and aggressive behavior; however , with his new medications on board, the patient did seem very relaxed and compliant and his stated she seemed to be able to take care of him at home with the appropriate help in the house. The patient was discharged to home in stable condition under the care of his . She has arranged for in-home day- to-day care. REVIEW OF SYSTEMS: On the day of discharge are not reliable secondary to the patient's condition; however, he is not complaining of any pain. He is able to ambulate with some assistance and is in no overt distress. PHYSICAL EXAMINATION: Vital signs are blood pressure 143/77, heart rate 59, respiratory rate 14, O2 saturation 100% on room air with a temperature of 97.7. HEENT: The patient is atraumatic, normocephalic. PERRLA. Nonicteric sclerae. Oral mucosa is dry. Tongue is midline. Neck is supple, nontender. No JVD noted. No carotid bruits auscultated. Cardiovascular: S1, S2 present. No murmurs, gallops, or rubs. Rate and rhythm are regular. Lungs are clear bilaterally to auscultation. Abdomen: Soft, nontender, nondistended. Positive bowel sounds in all 4 quadrants. : He is incontinent at baseline. Musculoskeletal: He does have stiff gait and parkinsonian tremor especially in the left hand. Neurologic: He has baseline Parkinson disease and deficits, which remain unchanged. Psychiatric: Although he had some outburst behavior initially upon admission, his symptoms seem to have resolved and he is currently cooperative. DIAGNOSTIC STUDIES/LAB DATA: Admitting labs on 02/16/19, WBC 7.0, RBC 4.79, hemoglobin 14.7, hematocrit 42, platelets 130. Sodium 140, potassium 4.2, chloride 106, CO2 28, BUN 13, creatinine 0.86, GFR 87.2, calcium 8.7, magnesium 2.2, bilirubin 0.80, lactic acid 1.0. AST 12, ALT 5, alk phos 86. Troponins 0.00. Protein 6.4, albumin 3.9, globulin 2.5. B12 was 147, TSH 2.54, free T4 0.97. Urinalysis was negative for any acute infective process. Thyroid antibodies were 0.66. CT of the brain on 02/16/19 showed deep brain stimulator is generating streak artifact, no acute intracranial abnormality, moderate right maxillary sinus mucosal disease, status post left canal wall-up mastoidectomy. EKG, dated 02/16/19: Sinus daniel with no acute ST segment changes and no overt ectopy, motion artifact noted. DISCHARGE DIAGNOSES: Parkinson disease and parkinsonian psychosis. DISCHARGE MEDICATIONS: Include: 1. Midodrine 5 mg p.o. daily. 2. Doxycycline 20 mg 2 times a day. 3. Vitamin D 2000 units p.o. daily. 4. Paxil 30 mg p.o. daily. 5. Sinemet 50/200 two tabs p.o. at 8 p.m., 25/250 half tab at 8 a.m. and 2 p.m. , and 25/100 half tab at 11 a.m. and 5 p.m. 6. Seroquel 25 mg p.o. at noon and 50 mg p.o. at bedtime. 7. Rivastigmine 13.3 mg topical at bedtime. 8. Vitamin B12 1000 mcg p.o. daily. Medication changes recommended: Stopping Ativan, continuing the Seroquel in the afternoon, which is a change, and then continuing the 50 mg at bedtime. DISPOSITION: Discharged to home in the care of his in stable condition. DIET: Mechanical, soft as tolerated. FOLLOWUP: The patient was instructed to follow up with Dr. Dow in the next 4 to 7 days, also follow up with Neurology in [place] in the next 1 to 2 weeks. DISPOSITION: Discharged to home, off of correction care, in stable condition. ROSI LOBATO, DULCE [id number]/[facility] #: [id number] [facility] HOSPITALChris
== END 2019-02-20 14:10 | disposition home or self-care (01) | DRG 57 ==
LOC: ED 09:21 → MED 16:20
PROVIDERS: ADMIT Internal Medicine; ATTEND Internal Medicine
DX: G20 Parkinson's disease (principal); F02.81 Dementia in other diseases classified elsewhere, unspecified severity, with behavioral disturbance; F06.8 Other specified mental disorders due to known physiological condition; I95.1 Orthostatic hypotension; Z66 Do not resuscitate; Z96.89 Presence of other specified functional implants; R41.0 Disorientation, unspecified; E53.8 Deficiency of other specified B group vitamins; M21.372 Foot drop, left foot; Z79.899 Other long term (current) drug therapy; Z82.49 Family history of ischemic heart disease and other diseases of the circulatory system; I10 Essential (primary) hypertension
CPT/HCPCS: 36415; 70450; 71045; 80053; 81003; 82607; 83605; 83735; 84439; 84443; 84479; 84481; 84484; 85025; 86376; 87641; 93005; 96360; 96361; 99283; 99284; A9270-GY; G8978-GP-CL; G8979-GP-CI; J1644; J3420

== ENCOUNTER 2019-08-26 11:34 | Emergency (ER) | payer MEDICARE, BC ==
[2019-08-26 12:46] VITALS: BP 138/81
--- NOTE | 2019-08-26 13:04 | UC ---
Complaint Male HPI - HPI Summary HPI Summary: 74-year-old male presenting with spouse and children's zoo caretaker for complaint of redness in the groin area that they noticed this morning. They also noticed foul smell but are not sure if it is coming from the groin area or from his urine so they' re concerned for UTI as well. They deny bleeding or drainage from the rash. The patient denies itching. Denies abnormal discharge or bleeding from the penis. Denies painful urination. Rn Neonatal notes slight increased frequency in urination. Patient denies abdominal pain. Denies fever and chills. Denies testicular pain. Denies taking anything for symptoms. - History of Current Complaint Chief Complaint: UCGU Stated Complaint: URINARY ISSUE PERSONAL Hx Obtained From: Patient, Family/Rn Neonatal - , children's zoo caretaker Pain Intensity: 0 - Allergies/Home Medications Allergies/Adverse Reactions: Allergies Allergy/AdvReac Type Severity Reaction Status Date / Time No Known Allergies Allergy Verified 08/26/19 12:24 Home Medications: Home Medications Pimavanserin Tartrate [Nuplazid] 30 mg PO DAILY 08/26/19 [History Confirmed ] QUEtiapine TAB* [Seroquel 25 MG TAB*] 50 mg PO DAILY 08/26/19 [History Confirmed 08/26/19] PMH/Surg Hx/FS Hx/Imm Hx - Surgical History Surgical History: Yes Surgery Procedure, Year, and Place: DBS- electrodes in brain, batteries in chest - Family History Known Family History: Positive: Non-Contributory Negative: Blood Disorder - Social History Alcohol Use: None Substance Use Type: None Smoking Status (MU): Never Smoked Tobacco Review of Systems All Other Systems Reviewed And Are Negative: Yes Constitutional: Positive: Negative. Negative: Fever, Chills Skin: Positive: Rash - Bilateral groin area Respiratory: Positive: Negative Cardiovascular: Positive: Negative Gastrointestinal: Positive: Negative. Negative: Abdominal Pain, Vomiting, Diarrhea, Nausea Genitourinary: Positive: Frequency. Negative: Dysuria, Hematuria, Urgency, Vaginal/Penile Burning, Vaginal/Penile Itching, Vaginal/Penile Discharge, Ulceration/Lesion Musculoskeletal: Positive: Negative Neurological: Positive: Negative Physical Exam - Summary Physical Exam Summary: Vital Signs Reviewed: Yes A+Ox3, no distress Eyes: Conjunctiva Clear ENT: Hearing grossly normal Neck: Positive: Supple Respiratory: Positive: No respiratory distress, No accessory muscle use + CTA throughout no w/r Cardiovascular: RRR nl s1, s2 no m/r Abd: soft + BS nt/nd no guarding, no distension Musculoskeletal Exam: GOLDSMITH x 4 with some difficulty d/t parkinsons Neurological: Positive: Alert Psychological: Positive: age appropriate behavior, normal response to family Skin: Positive: +erythematous rash diffuse over b/l inguinal region and scrotum. minimal weeping of yellowish discharge in intertriginous areas. no bleeding Vital Signs: Initial Vital Signs Temp 98.1 F 08/26/19 12:40 Pulse 58 08/26/19 12:40 Resp 17 08/26/19 12:40 BP 138/81 08/26/19 12:40 Pulse Ox 100 08/26/19 12:40 Lab Results 08/26/19 Range/Units 13:01 POC Urine Color Dark yellow POC Urine Clarity Clear POC Urine pH 6.5 (5-9) POC Ur Specif [place] 1.020 (1.010-1.030) POC Urine Protein Negative (Negative) POC Ur Glucose (UA) Negative (Negative) POC Urine Ketones Negative (Negative) POC Urine Blood Negative (Negative) POC Urine Nitrite Negative (Negative) POC Urine Bilirubin Negative (Negative) POC Urine Urobilinogen 0.2 (Negative) POC U Leukocyte Esteras Negative (Negative) Complaint Male Course/Dx - Course Course Of Treatment: I treated patient with Lotrisone cream for intertriginous candidal infection. UA negative but was sent for culture based on her reported urinary frequency and patient's age. Educated on keeping the skin clean and dry. Directed to follow up with PCP if symptoms persist longer than 7 days. Patient, , and children's zoo caretaker voiced understanding and agreed with the treatment plan. - Differential Dx/Diagnosis Provider Diagnosis: Yeast infection of the skin Discharge ED - Sign-Out/Discharge Documenting (check all that apply): Patient Departure All imaging exams completed and their final reports reviewed: No Studies - Discharge Plan Condition: Stable Disposition: HOME Prescriptions: Clotrimazole/Betamethasone* [Lotrisone Cream*] 1 applic TOPICAL BID 7 Days #1 tube Patient Education Materials: Skin Yeast Infection (ED) Referrals: Will Dow [Primary Care Provider] - If Needed Additional Instructions: Apply the antifungal cream twice daily for 7 days. Keep the area as clean and dry as possible. Pat the skin dry after bathing, do not rub the skin. Follow up with your primary care provider if symptoms worsen or do not resolve within 7 days. - Billing Disposition and Condition Condition: STABLE Disposition: Home
== END 2019-08-26 13:37 | disposition home or self-care (01) ==
LOC: UCEAST 11:34
DX: B37.2 Candidiasis of skin and nail (principal); R35.0 Frequency of micturition
CPT/HCPCS: 81003; 87086; 99212; G0463